=== PATIENT | male | born 1980 | race Caucasian/White ===

== ENCOUNTER 2020-01-05 07:51 | Inpatient (IN) | payer OTHER ==
[~2020-01-05] VITALS: Ht 180.3 cm; Wt 80.5 kg
[2020-01-05] MEDS ORDERED: METF-960 PO (08:06)
[2020-01-05] MEDS ORDERED: DEXTROSE 50%-WATER 25 GM/50 ML SYRINGE IVP PRN (08:15)
[2020-01-05 08:30] LABS: BASOPHILS % (AUTO) 0.7 % (0.0-2.0); EOSINOPHILS % (AUTO) 2.3 % (1.0-6.0); HEMATOCRIT 40.8 % (41-53); HEMOGLOBIN 13.5 g/dL (13.5-17.5); LYMPHOCYTES # (AUTO) 2.2 K/uL (1.0-4.8); LYMPHOCYTES % (AUTO) 29.6 % (22.0-44.0); MEAN CORPUSCULAR HEMOGLOBIN 28.2 pg (26.0-34.0); MEAN CORPUSCULAR HGB CONC 33.2 G/dL (31.0-37.0); MEAN CORPUSCULAR VOLUME 85 fL (80-100); MONOCYTES # (AUTO) 0.6 K/uL (0.1-1.0); MONOCYTES % (AUTO) 7.9 % (2.0-9.0); NEUTROPHILS # (AUTO) 4.4 K/uL (1.8-7.7); NEUTROPHILS % (AUTO) 59.5 % (40.0-70.0); PLATELET COUNT (AUTO) 204 K/uL (150-450); RED CELL DISTRIBUTION WIDTH 13.9 % (11.5-14.5)
[2020-01-05] MEDS ORDERED: ACETAMINOPHEN 325 MG TABLET PO PRN (08:30)
[2020-01-05 08:38] LABS: ANION GAP 9 mmol/L (8-16); CALCIUM, TOTAL 8.5 mg/dL (8.8-10.5); CARBON DIOXIDE 26 mmol/L (22-29); CHLORIDE 101 mmol/L (98-107); CREATININE 0.67 mg/dL (0.60-1.30); GLOMERULAR FILTR. RATE CALC > 60 mL/min (>60); GLUCOSE,RANDOM 355 mg/dL (70-110); POTASSIUM 3.8 mmol/L (3.5-5.1); SODIUM SERUM 136 mmol/L (136-145); UREA NITROGEN, BLOOD 10 mg/dL (7-18)
[2020-01-05 09:40] VITALS: BP 118/83
[2020-01-05 09:42] VITALS: BP 118/83
[2020-01-05 11:20] LABS: GLUCOMETER DEV NAME(LOC) 6S.1; GLUCOSE,POINT OF CARE 277 MG/DL (70-110)
[2020-01-05] MEDS: INSULIN LISPRO 100 UNITS/ML SQ PRN ×3 (11:21→20:17)
[2020-01-05 15:55] VITALS: BP 130/85
[2020-01-05] MEDS: MetFORMIN HCL 850 MG TABLET PO SCH (17:18)
[2020-01-05 17:22] LABS: GLUCOMETER DEV NAME(LOC) 6S.1; GLUCOSE,POINT OF CARE 269 MG/DL (70-110)
[2020-01-05 19:34] VITALS: BP 124/80
[2020-01-05 20:37] LABS: GLUCOMETER DEV NAME(LOC) 6S.1; GLUCOSE,POINT OF CARE 312 MG/DL (70-110)
[2020-01-06 04:59] VITALS: BP 120/86
[2020-01-06 06:52] LABS: GLUCOMETER DEV NAME(LOC) 6S.1; GLUCOSE,POINT OF CARE 254 MG/DL (70-110)
[2020-01-06] MEDS: MetFORMIN HCL 850 MG TABLET PO SCH (08:27)
[2020-01-06 08:36] VITALS: BP 123/86
[2020-01-06] MEDS ORDERED: DEXTROSE 50%-WATER 25 GM/50 ML SYRINGE IVP PRN (09:45)
[2020-01-06] MEDS: INSULIN LISPRO 100 UNITS/ML SQ PRN ×3 (11:26→20:27)
[2020-01-06 15:27] VITALS: BP 130/86
[2020-01-06] MEDS: MetFORMIN HCL 500 MG TABLET PO SCH (17:38)
[2020-01-06 19:55] VITALS: BP 121/79
[2020-01-06 22:19] LABS: GLUCOMETER DEV NAME(LOC) 6S.1; GLUCOSE,POINT OF CARE 264 MG/DL (70-110)
[2020-01-06 22:19] LABS: GLUCOMETER DEV NAME(LOC) 6S.1; GLUCOSE,POINT OF CARE 263 MG/DL (70-110)
[2020-01-06 22:19] LABS: GLUCOMETER DEV NAME(LOC) 6S.1; GLUCOSE,POINT OF CARE 338 MG/DL (70-110)
[2020-01-07 05:17] VITALS: BP 117/86
[2020-01-07] MEDS: INSULIN LISPRO 100 UNITS/ML SQ PRN ×4 (06:11→20:27)
[2020-01-07] MEDS: MetFORMIN HCL 500 MG TABLET PO SCH ×2 (07:48→17:05)
[2020-01-07 08:09] LABS: GLUCOMETER DEV NAME(LOC) 6S.1; GLUCOSE,POINT OF CARE 313 MG/DL (70-110)
[2020-01-07 08:17] VITALS: BP 119/88
[2020-01-07] MEDS: GlipiZIDE 10 MG TABLET PO SCH ×2 (11:21→17:06)
[2020-01-07 11:25] LABS: GLUCOMETER DEV NAME(LOC) 6S.1; GLUCOSE,POINT OF CARE 260 MG/DL (70-110)
[2020-01-07 15:10] VITALS: BP 124/74
[2020-01-07 17:24] LABS: GLUCOMETER DEV NAME(LOC) 6S.1; GLUCOSE,POINT OF CARE 256 MG/DL (70-110)
[2020-01-07] MEDS ORDERED: GlipiZIDE 5 MG TABLET PO SCH (17:30)
[2020-01-07 20:01] VITALS: BP 111/78
[2020-01-07 21:35] LABS: GLUCOMETER DEV NAME(LOC) 6S.1; GLUCOSE,POINT OF CARE 230 MG/DL (70-110)
[2020-01-08 05:28] VITALS: BP 114/81
[2020-01-08] MEDS: GlipiZIDE 10 MG TABLET PO SCH (06:18)
[2020-01-08] MEDS: INSULIN LISPRO 100 UNITS/ML SQ PRN ×2 (06:18→11:43)
[2020-01-08] MEDS: MetFORMIN HCL 500 MG TABLET PO SCH (08:14)
[2020-01-08 08:36] VITALS: BP 117/81
[2020-01-08] MEDS ORDERED: METF-960 PO (11:11)
[2020-01-08] MEDS ORDERED: GLIP10 PO (11:11)
[2020-01-08 12:31] LABS: GLUCOMETER DEV NAME(LOC) 6S.1; GLUCOSE,POINT OF CARE 204 MG/DL (70-110)
[2020-01-08 12:31] LABS: GLUCOMETER DEV NAME(LOC) 6S.1; GLUCOSE,POINT OF CARE 299 MG/DL (70-110)
[2020-01-08] MEDS ORDERED: ACETAMINOPHEN 325 MG TABLET PO PRN (13:00)
== END 2020-01-08 14:10 | DRG 639 ==
LOC: EMS 07:54 → UNDOADMIN 09:03 → 6S 09:03
PROVIDERS: ADMIT Internal Medicine; ATTEND Internal Medicine
DX: E11.65 Type 2 diabetes mellitus with hyperglycemia (principal); F17.210 Nicotine dependence, cigarettes, uncomplicated; F15.90 Other stimulant use, unspecified, uncomplicated; F19.10 Other psychoactive substance abuse, uncomplicated; Z91.19 Patient's noncompliance with other medical treatment and regimen; Z72.89 Other problems related to lifestyle
CPT/HCPCS: 83036